=== PATIENT | male | born 1980 | race Caucasian/White ===

== ENCOUNTER 2022-12-13 09:41 | Outpatient (OUT) | payer MEDICARE, SELFPAY ==
--- NOTE | 2022-12-13 | VEIN_ITS ---
Patient: LILLIAN PETERSON Exam Date: 12/13/2022 : 1980 Gender:M Ordering : ASHLEY VÁSQUEZ Admission #: [id number] Family : Order #: [id number] CLICK HERE TO VIEW EXAM RADIOLOGY REPORT PROCEDURE: VC EXT VENOUS REFLUX ALEX LMTD COMPARISON: None. INDICATIONS: Pain due to varicose veins of bilateral legs I83.813 TECHNIQUE: Duplex imaging of the lower extremity to assess the deep and superficial venous system for the presence of deep or superficial venous incompetence and to document the location and severity of disease. The study includes evaluation of the great saphenous vein (GSV), anterior accessory saphenous vein (AASV) and small saphenous vein (SSV). Patient scanned in reverse Trendelenburg and standing. FINDINGS: RIGHT LOWER EXTREMITY: Saphenofemoral Junction Reflux: YesNo 3.7mm sec GSV: Diam (mm) Reflux/ Time (sec) Proximal Thigh 3.3 No Mid Thigh 2.2 No Distal Thigh N/A Prox Calf N/A Mid Calf N/A Saphenopopliteal Junction Reflux: 5.7mm Yes 1.3 SSV: Proximal Calf 6.7 Yes 0.7 Mid Calf 4.3 Yes 2.0 AASV: Not present Proximal Thigh Mid Thigh Distal Thigh Thrombi: No acute or chronic thrombus Compressibility: Normal Flow: Normal Preforator: Prox/med calf 5.7mm with 0.6s reflux. Tech Note: Incompetent SPJ and SSV. Patent varicose vein mid/med calf 4.0mm with 1.4s reflux. LEFT LOWER EXTREMITY: Saphenofemoral Junction Reflux: No 3.9 mm sec GSV: Diam (mm) Reflux/Time (sec) Proximal Thigh 2.7 No Mid Thigh 3.4 Yes 1.0 Distal Thigh 3.1 No Prox Calf 2.5 No Mid Calf 2.0 Saphenopopliteal Junction Relux: 3.6 mm No SSV: Proximal Calf 2.4 No Mid Calf 1.9 No AASV: Not present Proximal Thigh Mid Thigh Distal Thigh Thrombi: No acute or chronic thrombus visualized Compressibility: Normal Flow: Normal Branch Operations Coordinator: No perforators visualized. Tech Note: No patent varicose veins. CONCLUSION: 1. Abnormally dilated and incompetent right small saphenous vein. 2. Abnormally dilated incompetent hat binder vein within proximal right calf. Dictated by: Tobias Pitts M.D. on 12/13/2022 at 10:59 Approved by: Tobias Pitts M.D. on 12/13/2022 at 11:02
--- NOTE | 2022-12-13 | VEIN_ITS ---
Patient: LILLIAN PETERSON Exam Date: 12/13/2022 : 1980 Gender:M Ordering : ASHLEY VÁSQUEZ Admission #: [id number] Family : Order #: [id number] CLICK HERE TO VIEW EXAM RADIOLOGY REPORT PROCEDURE: VC FACILITY EST COMPREHENSIVE VEIN CENTER - OFFICE VISIT INITIAL COMPARISON: None. PROGRESS NOTES: [age] year old male who presents with a 6 year history of right lower extremity aching, burning, heaviness, itching, stinging, dull pain, reoccurring wound. The patient's right leg symptoms are worse than the left. There has been a progression of symptoms over time with development of edema and cellulitis. This increases with prolonged like dependency. The patient describes an improvement with rest, elevation, and compression stockings. The patient denies any signs and symptoms to suggest arterial ischemia. The patient describes a family history : Noncontributory. The patient has drinking and smoking history of : Heavy tobacco smoker; no alcohol consumption. Patient has a past medical history significant for hypertension, bicuspid cardiac valve, spinal surgery. The patient denies a history of deep venous thrombus or pulmonary embolus. See separate history and physical for medication list. No prior treatment for varicose or spider veins. Current use of compression stockings. After review of nurse notes, history and physical exam I discussed at length the pathophysiology of venous hypertension and possible treatments, therapies and strategies available. We discussed at length the importance of elevating the lower extremities above the level of the heart, increased physical activity and compression stocking use. Ultrasound venous reflux study performed today was discussed at length with the patient. The report demonstrates dilated and incompetent right small saphenous vein, right calf hazardous materials analyst vein, and several incompetent branch saphenous varicosities. PHYSICAL EXAM: The right leg demonstrates several calf varicosities, no significant spider veins, areas of scarring and prior infection/wounds, but no current open ulceration, mild edema, scattered areas of skin discoloration. The left leg demonstrates no significant varicosities, no spider veins, no ulceration, no edema, no skin discoloration. Both thighs, legs and feet were symmetrically warm to the touch. Good posterior tibial and dorsalis pedis pulses were present bilaterally. VEIN/[facility] Facility EST Comprehensive IMPRESSION: 1. Right lower extremity venous insufficiency 2. Right lower extremity varicose veins 3. Right lower extremity subcutaneous edema 4. No flow significant arterial disease 5. CEAP: C3, EP, AP, MD PLAN: 1. Continued use of compression stockings 2. Elevated legs and increased physical activity symptomatic relief 3. Endovenous laser ablation of right small saphenous vein, right calf hazardous materials analyst vein, and microfoam chemical ablation of right leg branch saphenous varicosities. Nurse notes, history and physical were reviewed and confirmed, see attached forms. The nurse was present throughout the physical exam and consultation Dictated by: Tobias Pitts M.D. on 12/13/2022 at 11:25 Approved by: Tobias Pitts M.D. on 12/13/2022 at 11:32
== END 2022-12-13 09:42 | disposition home or self-care (01) ==
LOC: VC 09:41
DX: I83.813 Varicose veins of bilateral lower extremities with pain (principal); Z87.2 Personal history of diseases of the skin and subcutaneous tissue; R60.0 Localized edema; I80.00 Phlebitis and thrombophlebitis of superficial vessels of unspecified lower extremity
CPT/HCPCS: 93970; G0463

== ENCOUNTER 2023-01-19 08:23 | Outpatient (OUT) | payer MEDICARE, SELFPAY ==
--- NOTE | 2023-01-19 | VEIN_ITS ---
[address] [address] Patient Name: LILLIAN PETERSON MRN: [id number] date: 1980 Sex: M Assigned Patient Location: Current Patient Location: Accession/Order Number: [id number] Exam Date: 01/19/2023 08:40 Report Date: 01/19/2023 09:55 At the request of: DELVIN ESPINOSA Procedure: VC Endovenous Ablation 1VeinRT EXAMINATION: VC Endovenous Ablation 1VeinRT HISTORY: Pain due to varicose veins of bilateral legs I83.813 The risks and benefits of the procedure had been previously discussed, and were rediscussed at length. Informed written consent was obtained. Jay Isabel RN and Juanpablo Christina RDMS assisted. Time out procedure was performed. The right lower extremity was prepared and draped in the usual sterile fashion to allow knee flexion in the sterile field. Duplex ultrasound probe was draped in a sterile cover, sterile transmission gel was used. Venous mapping was performed with the areas of dilation and large tributaries marked. The total length was 38 cm from the entry 3 cm above lateral malleolus to just above knee joint (thigh extension). The diameter of the small saphenous vein ranged from 6.7 mm. A 30 gauge needle and 1% buffered lidocaine was used to anesthetize the entry site. A 4 mm incision was made with a scalpel and the saphenous vein was entered percutaneously under direct ultrasound guidance with a micropuncture set, a single stick was successful in gaining access. A micro-guide wire was inserted and the needle removed. A micro-set including a dilator was inserted over the microwire and the needle and dilator were removed. A guide wire was inserted through the micro-set and guided through the saphenous vein to the saphenofemoral junction. The dilator was removed and an introducer sheath was inserted over the wire until the end of the sheath entered the saphenofemoral junction. The dilator and wire were removed and the 600 micron fiber was introduced and placed and positioned so that it extended beyond the sheath and was 3 cm distal to the saphenofemoral or saphenopopliteal junction. Final position of the fiber was determined by ultrasound guidance and duplex imaging. Tumescent anesthetic was delivered by ultrasound guidance. 175 cc of fluid was delivered along the entire course of the saphenous vein. The solution consisted of 1000 cc of normal saline with 40 mL of 1% lidocaine and 20 mL of sodium bicarbonate. A final positioning check was made. The energy source was turned on by means of the foot pedal and the fiber and sheath were withdrawn. The total number of Joules delivered was 1871. The laser was active for 234 seconds under continuous pulse, average laser use of 8 J. Laser start time 0942 hours, 01/19/23. Laser stop time 0946 hours, 01/19/23. A duplex ultrasound revealed compressibility and flow at the saphenofemoral junction immediately after the procedure. Hemostasis at the access site was achieved. The skin incision of the saphenous vein was closed with a 4 x 4. A compression stocking was applied. Postop instructions were given. A follow up appointment was recommended and scheduled. The patient tolerated the procedure well. Electronically authenticated by: DEMETRA BRADEN Date: 01/19/2023 09:55
[2023-01-19] MEDS: 0.9 % SODIUM CHLORIDE 500 ML, LIDOCAINE HCL 20 ML, SODIUM BICARBONATE 10 MEQ INJ (08:59)
== END 2023-01-19 08:24 | disposition home or self-care (01) ==
LOC: VC 08:23
PROVIDERS: Visit Provider Radiology Diagnostic Radiology
DX: I83.813 Varicose veins of bilateral lower extremities with pain (principal)
CPT/HCPCS: 36478

== ENCOUNTER 2023-01-26 09:01 | Outpatient (OUT) | payer MEDICARE, SELFPAY ==
--- NOTE | 2023-01-26 09:04 | VEIN_ITS ---
Patient: LILLIAN PETERSON Exam Date: 01/26/2023 : 1980 Gender:M Ordering : DR MIGUEL ANGEL SEBASTIAN M.D. Admission #: [id number] Family : Order #: [id number] CLICK HERE TO VIEW EXAM RADIOLOGY REPORT PROCEDURE: VC EXT VENOUS RT LMTD COMPARISON: None. INDICATIONS: I80.01 phlebitis/thrombophlebitis right leg TECHNIQUE: Lower extremity saldivar scale and Duplex Doppler evaluation of the deep venous system from the inguinal ligament through the calf veins. FINDINGS: REGION: Right lower extremity. THROMBI: Negative for DVT. Heat induced thrombus visualized in SSV starting at mid thigh and extending through distal calf. COMPRESSIBILITY: Non-compressible segments corresponding to thrombus. FLOW: Absent flow corresponding to thrombus. CONCLUSION: Post ablation occlusion of the right small saphenous vein Dictated by: Miguel Angel Sebastian MD on 01/26/2023 at 09:16 Approved by: Miguel Angel Sebastian MD on 01/26/2023 at 09:18
--- NOTE | 2023-01-26 09:04 | VEIN_ITS ---
Patient: LILLIAN PETERSON Exam Date: 01/26/2023 : 1980 Gender:M Ordering : DR MIGUEL ANGEL SEBASTIAN M.D. Admission #: [id number] Family : Order #: [id number] CLICK HERE TO VIEW EXAM RADIOLOGY REPORT PROCEDURE: VC FACILITY EST LMTD VEIN CENTER - OFFICE VISIT FOLLOW UP COMPARISON: None. PROGRESS NOTES: The patient reports no significant problems following intravenous laser ablation of the right small saphenous vein. The patient did not require oral analgesics. The patient has worn his compression stockings. The patient has followed our recommendations to walk 20-30 minutes once or twice per day since the procedure. Physical exam demonstrates no areas of bruising. The thrombosed right small saphenous vein can be palpated. No areas of erythema or warmth to suggest cellulitis or thrombophlebitis. Extensive hemosiderin staining and skin thickening most significant along the medial ankle Review of the ultrasound performed the same day demonstrates occlusive thrombus extending throughout the treated small saphenous vein. No deep vein thrombus.. The patient expressed a desire to proceed with treatment of incompetent right perforating veins related to persistent ulceration. VEIN/[facility] Facility EST LMTD IMPRESSION: 1. Successful ablation of the right small saphenous vein 2. Persistent incompetent right perforating vein. PLAN: Intravenous laser ablation right leg incompetent perforating veins Nurse notes, history and physical were reviewed and confirmed, see attached forms. The nurse was present throughout the physical exam and consultation Dictated by: Miguel Angel Sebastian MD on 01/26/2023 at 11:41 Approved by: Miguel Angel Sebastian MD on 01/26/2023 at 11:44
== END 2023-01-26 09:02 | disposition home or self-care (01) ==
LOC: VC 09:01
PROVIDERS: PCP Radiology Diagnostic Radiology; Visit Provider Radiology Diagnostic Radiology
DX: I80.01 Phlebitis and thrombophlebitis of superficial vessels of right lower extremity (principal)
CPT/HCPCS: 93971; G0463

== ENCOUNTER 2023-02-14 12:46 | Outpatient (OUT) | payer MEDICARE, SELFPAY ==
--- NOTE | 2023-02-14 12:51 | VEIN_ITS ---
[address] [address] Patient Name: LILLIAN PETERSON MRN: [id number] date: 1980 Sex: M Assigned Patient Location: Current Patient Location: Accession/Order Number: [id number] Exam Date: 02/14/2023 13:00 Report Date: 02/14/2023 14:32 At the request of: DELVIN ESPINOSA Procedure: VC Endovenous Perf Ablation RT EXAMINATION: VC Endovenous Perf Ablation RT COMPARISON: INDICATIONS: Pain due to varicose veins of bilateral legs I83.813 OPERATIVE REPORT: Diagnosis: Superficial venous reflux, incompetent perforating veins Procedure: Endovenous laser ablation of the right obiee consultant(s) Procedure: The patient was positioned supine on the table and the leg was prepped and draped to allow for visualization during venous access. A sterile cover was draped over a 16 mhz ultrasound probe. Venous mapping was performed prior to the procedure noting location and size of vessel(s). Federal Judicial Law Clerk vein 1: Medial mid right lower leg. The diameter of the vein ranged from 15 mm's below the muscular fascia to 5 mm's at the entry point. Using a 30 gauge needle the entry site was anesthetized with 1 cc of 1% buffered lidocaine. Access was gained percutaneously, with a 21-gauge needle, into the obiee consultant vein under ultrasound guidance. The needle was advanced into the desired position and the pre-measured 400-micron fiber was then inserted into the needle and locked in place. The position of the fiber was imaged with ultrasound guidance. The fiber tip was visualized to be 15 mm from the deep vessel. An anesthetic solution of 6 cc 1% buffered lidocaine was delivered along the course of the vein under ultrasound guidance using a syringe. A final positioning check of the laser fiber tip was performed. The laser was activated by means of a foot-pedal and the fiber and needle were withdrawn together in accordance to the desired joules per treatment area/spot weld. 4 areas/spot welds were performed, and the total number of joules delivered was 145 . The total time of energy delivery was 18 seconds. A duplex ultrasound revealed compressibility and flow of the deep system immediately after the procedure. Hemostasis of the access site was achieved and dressed. Federal Judicial Law Clerk vein 2: Mid posterior medial right leg. The diameter of the vein ranged from 6 mm's below the muscular fascia to 4 mm's at the entry point. Using a 30 gauge needle the entry site was anesthetized with 1 cc of 1% buffered lidocaine. Access was gained percutaneously, with a 21-gauge needle, into the obiee consultant vein under ultrasound guidance. The needle was advanced into the desired position and the pre-measured 400-micron fiber was then inserted into the needle and locked in place. The position of the fiber was imaged with ultrasound guidance. The fiber tip was visualized to be 20 mm from the deep vessel. An anesthetic solution of 5cc 1% buffered lidocaine was delivered along the course of the vein under ultrasound guidance using a syringe. A final positioning check of the laser fiber tip was performed. The laser was activated by means of a foot-pedal and the fiber and needle were withdrawn together in accordance to the desired joules per treatment area/spot weld. 4 areas/spot welds were performed, and the total number of joules delivered was 135. The total time of energy delivery was 17 seconds. A duplex ultrasound revealed compressibility and flow of the deep system immediately after the procedure. Hemostasis of the access site was achieved and dressed. [employer] Judicial Law Clerk vein 3: Right medial ankle. The diameter of the vein ranged from 8 mm's below the muscular fascia to 4 mm's at the entry point. Using a 30 gauge needle the entry site was anesthetized with 1 cc of 1% buffered lidocaine. Access was gained percutaneously, with a 21-gauge needle, into the obiee consultant vein under ultrasound guidance. The needle was advanced into the desired position and the pre-measured 400-micron fiber was then inserted into the needle and locked in place. The position of the fiber was imaged with ultrasound guidance. The fiber tip was visualized to be 10 mm from the deep vessel. An anesthetic solution of 5cc 1% buffered lidocaine was delivered along the course of the vein under ultrasound guidance using a syringe. A final positioning check of the laser fiber tip was performed. The laser was activated by means of a foot-pedal and the fiber and needle were withdrawn together in accordance to the desired joules per treatment area/spot weld. 4 areas/spot welds were performed, and the total number of joules delivered was 215. The total time of energy delivery was 27 seconds. A duplex ultrasound revealed compressibility and flow of the deep system immediately after the procedure. Hemostasis of the access site was achieved and dressed. A 20-30 mm compression stocking over coban was placed on the treated leg. Post-Op instructions were given, and a follow-up appointment was made. CONCLUSION: 1. Technically successful endovenous laser ablation of 3 right leg pain, obiee consultant veins Electronically authenticated by: DELVIN ESPINOSA Date: 02/14/2023 14:32
[2023-02-14] MEDS: LIDOCAINE HCL 20 ML, SODIUM BICARBONATE 2 MEQ INJ (13:12)
== END 2023-02-14 12:47 | disposition home or self-care (01) ==
LOC: VC 12:46
PROVIDERS: PCP Radiology Diagnostic Radiology; Visit Provider Radiology Diagnostic Radiology
DX: I83.813 Varicose veins of bilateral lower extremities with pain (principal)
CPT/HCPCS: 36478

== ENCOUNTER 2023-02-28 12:52 | Outpatient (OUT) | payer MEDICARE, SELFPAY ==
--- NOTE | 2023-02-28 | VEIN_ITS ---
Patient: LILLIAN PETERSON Exam Date: 02/28/2023 : 1980 Gender:M Ordering : DR MIGUEL ANGEL SEBASTIAN M.D. Admission #: [id number] Family : Order #: [id number] CLICK HERE TO VIEW EXAM RADIOLOGY REPORT PROCEDURE: [facility] EST TD VEIN CENTER - OFFICE VISIT FOLLOW UP COMPARISON: [facility], 01/26/2023. PROGRESS NOTES: The patient reports some mild discomfort of the right leg following intravenous laser ablation of multiple perforating veins. The patient did not require analgesics. He has worn his compression stockings. The patient has followed our recommendations to walk 20-30 minutes once or twice per day since the procedure. Physical exam demonstrates multiple thrombosed varicose veins. Reduction in subcutaneous edema is observed. No areas of erythema or warmth to suggest cellulitis or thrombophlebitis. No active ulceration Review of the ultrasound performed the same day demonstrates occlusive thrombus extending throughout the treated senior market intelligence consultant veins. There is a 2.5 cm segment of deep vein thrombus in a single posterior tibial vein likely representing clot propagation from a treated adjacent senior market intelligence consultant vein. I did not recommend any therapy at this time. The patient expressed a desire to proceed with treatment of incompetent right leg varicose veins with micro foam chemical ablation. [facility] IMPRESSION: 1. Successful ablation of incompetent right leg perforating veins 2. Persistent incompetent right leg varicose veins. PLAN: Micro foam chemical ablation right leg incompetent varicose veins Nurse notes, history and physical were reviewed and confirmed, see attached forms. The nurse was present throughout the physical exam and consultation Dictated by: Miguel Angel Sebastian MD on 02/28/2023 at 14:45 Approved by: Miguel Angel Sebastian MD on 02/28/2023 at 15:06
--- NOTE | 2023-02-28 | VEIN_ITS ---
Patient: LILLIAN PETERSON Exam Date: 02/28/2023 : 1980 Gender:M Ordering : DR MIGUEL ANGEL SEBASTIAN M.D. Admission #: [id number] Family : Order #: [id number] CLICK HERE TO VIEW EXAM RADIOLOGY REPORT PROCEDURE: VC EXT VENOUS RT LMTD COMPARISON: VC EXT VENOUS RT LMTD, 01/26/2023. INDICATIONS: Phlebitis of superficial veins of rt lower extremity I80.01 TECHNIQUE: Lower extremity saldivar scale and Duplex Doppler evaluation of the deep venous system from the inguinal ligament through the calf veins. FINDINGS: REGION: Right lower extremity. THROMBI: Positive for DVT. Positive for DVT at medial ankle PTV, 2.5 cm segment. Heat induced thrombus visualized at medial ankle, dist/med calf, and mid/med calf. COMPRESSIBILITY: Non-compressible segments corresponding to thrombus. FLOW: Absent flow corresponding to thrombus CONCLUSION: Post ablation occlusion of the treated incompetent perforating veins 2.5 cm segment of deep vein thrombus in a posterior tibial vein likely related to progression of clot from a treated perforating vein Dictated by: Miguel Angel Sebastian MD on 02/28/2023 at 13:15 Approved by: Miguel Angel Sebastian MD on 02/28/2023 at 13:16
== END 2023-02-28 12:53 | disposition home or self-care (01) ==
LOC: VC 12:52
PROVIDERS: PCP Radiology Diagnostic Radiology; Visit Provider Radiology Diagnostic Radiology
DX: I80.01 Phlebitis and thrombophlebitis of superficial vessels of right lower extremity (principal)
CPT/HCPCS: 93971; G0463

== ENCOUNTER 2023-03-09 13:01 | Outpatient (OUT) | payer MEDICARE, SELFPAY ==
--- NOTE | 2023-03-09 | VEIN_ITS ---
[address] [address] Patient Name: LILLIAN PETERSON MRN: [id number] date: 1980 Sex: M Assigned Patient Location: Current Patient Location: Accession/Order Number: [id number] Exam Date: 03/09/2023 13:10 Report Date: 03/09/2023 15:10 At the request of: DELVIN ESPINOSA Procedure: VC INJ Foam Sclerosant [employer]US [employer] PROCEDURE: VC INJ Foam Sclerosant [employer] COMPARISON: None. HISTORY: Painful Varicose Veins Pre-operative Diagnosis: CEAP class C3 venous insufficiency with pain, tenderness, edema and incompetent varicose vein(s), chronic venous insufficiency left leg secondary to venous incompetence Post-operative Diagnosis: CEAP class C3 venous insufficiency with pain, tenderness, edema and incompetent varicose vein(s), chronic venous insufficiency left leg secondary to venous incompetence Procedure Performed: 1. Ultrasound-guided microfoam chemical ablation with Varithenaregistered 2. Intraoperative ultrasound guidance Anesthesia: None Indications for Procedure: 42 year old female. Symptoms including pain and swelling for many years despite conservative medical therapy including medical compression stockings, exercise and analgesics. Prior procedures include endovenous laser ablation. Multiple incompetent varicosities of the left leg. Duplex scan showed reflux and enlarged diameters up to 5 mm. The patient underwent informed consent including management options where the complications of infection, bleeding, pain, and skin injury were discussed. Particular attention was spent discussing thrombus extension and deep vein thrombosis as well as the possibility of pulmonary embolus and treatment with oral or injectable blood thinners. Procedure: The patient walked to the procedure room. All applicable staff donned appropriate apparel. A procedure timeout was performed to confirm correct patient, correct extremity, correct procedure, and correct room set-up including presence of all applicable supplies, devices, and drugs. A duplex ultrasound, performed by myself confirmed the location and incompetence of branch saphenous varicosities and their course was marked on the skin together with the dilated tributaries. The extent of treatment of the vein and the associated varicosities was determined through ultrasound mapping. The skin was prepped and then punctured with a butterfly needle and advanced under ultrasound guidance. The Varithenaregistered canister was activated and the canister was primed and purged as required in the instructions for use. Varithenaregistered was drawn into a sterile syringe. 5 cc injected into a 5mm distal right great saphenous vein and associated varicose vein. 5 cc injected into a 5mm distal right lateral thigh varicose vein 5 cc injected into a 5mm distal lateral right lower leg varicose vein Varithenaregistered was slowly administered at 0.5-1.0 cc/second with close observation by ultrasound of its course in the vessels. Total volume utilized was: 15 cc. Following administration of Varithenaregistered the leg was elevated and the patient was asked to repeatedly dorsiflex the ankle to limit flow of Varithenaregistered into perforating veins. Once appropriate spasm had been confirmed in the treated veins, the vascular catheter was removed from the leg and light pressure was applied over the puncture site for hemostasis. The common femoral and deep superficial veins were then evaluated for flow and compressibility prior to dressing placement. The lower extremity was kept elevated at 45 degrees above the horizontal and cording material was applied over the saphenous segments and tributaries to allow for eccentric compression over the target vessels including the targeted saphenous vein(s). A multilayer dressing was applied consisting of foam pads, coban and thigh-high 20-30 mm Hg compression elastic support hose were placed on the patient. The leg was lowered only after compression had been applied and the patient was immediately ambulatory. The patient ambulated 10 minutes under supervision and was without apparent concerns at time of release. Post-care instructions include advising patient to keep post-treatment bandages in place and dry for 48 hours, avoid extended periods of inactivity, avoid heavy exercise for one week, wear compression stockings on the treated leg continuously for two weeks, to walk daily for 10 minutes over the next month. The patient was instructed to take an anti-inflammatory medicine as needed and to follow up for color duplex scan of the Saphenous veins, the treated branch saphenous varicosities, the adjacent deep veins, and additional treatment within 7 days. PERSONNEL: Jay Isabel RN Electronically authenticated by: DELVIN EPSINOSA Date: 03/09/2023 15:10
== END 2023-03-09 13:02 | disposition home or self-care (01) ==
LOC: VC 13:02
PROVIDERS: PCP Radiology Diagnostic Radiology; Visit Provider Radiology Diagnostic Radiology
DX: I83.813 Varicose veins of bilateral lower extremities with pain (principal)
CPT/HCPCS: 36466

== ENCOUNTER 2023-03-13 14:19 | Outpatient (OUT) | payer MEDICARE, SELFPAY ==
--- NOTE | 2023-03-13 14:20 | VEIN_ITS ---
Patient: LILLIAN PETERSON Exam Date: 03/13/2023 : 1980 Gender:M Ordering : DR DELVIN ESPINOSA M.D. Admission #: [id number] Family : Order #: [id number] CLICK HERE TO VIEW EXAM RADIOLOGY REPORT PROCEDURE: VC EXT VENOUS RT LMTD COMPARISON: VC EXT VENOUS RT LMTD, 02/28/2023. INDICATIONS: I80.01 Phlebitis of superficial veins of rt lower extremity TECHNIQUE: Lower extremity saldivar scale and Duplex Doppler evaluation of the deep venous system from the inguinal ligament through the calf veins. FINDINGS: REGION: Right lower extremity. THROMBI: Negative for DVT. Varithena induced thrombus visualized distal GSV, lat/dist thigh, and lat/dist calf. COMPRESSIBILITY: Non-compressible segments. FLOW: Areas of no flow. OTHER: Largest patent varicose vein that remains is at dist/med thigh 2.7mm with 0.7s reflux. CONCLUSION: 1. Successful post ablation occlusion of treated branch saphenous varicosities within the right leg. Dictated by: Tobias Pitts M.D. on 03/13/2023 at 15:01 Approved by: Tobias Pitts M.D. on 03/13/2023 at 15:01
--- NOTE | 2023-03-13 14:20 | VEIN_ITS ---
Patient: LILLIAN PETERSON Exam Date: 03/13/2023 : 1980 Gender:M Ordering : DR DELVIN ESPINOSA M.D. Admission #: [id number] Family : Order #: [id number] CLICK HERE TO VIEW EXAM RADIOLOGY REPORT PROCEDURE: [facility] EST [facility] - OFFICE VISIT FOLLOW UP [facility] PROGRESS NOTES: The patient reports improvement in leg symptoms. There has been interval reduction in varicosities. The patient has followed our recommendations to walk 20-30 minutes once or twice per day since the procedure. Physical exam demonstrates decrease in varicosities of the right leg. Persistent varicosities are identified along the left lung. Review of the ultrasound performed the same day demonstrates occlusive thrombus extending throughout the treated vein(s), see separate report, consistent with a successful ablation. No thrombus extending into or beyond the saphenofemoral junction. The patient expressed a desire to proceed with treatment of left leg incompetent branch saphenous varicosities. The patient was informed that treatment was a process and would require approximately 1 -2 procedures/sessions. VEIN/[facility] EST LMTD IMPRESSION: 1. Successful ablation of the treated right leg branch saphenous vein(s). 2. Persistent left leg varicose veins and lower extremity symptoms. PLAN: 1. Microfoam chemical ablation of left leg incompetent branch saphenous varicosities. 2. Ultrasound evaluation posterior 0 inferior to right ankle lateral malleolus where patient describes new area of discoloration and skin thickening. Nurse notes, history and physical were reviewed and confirmed, see attached forms. The nurse was present throughout the physical exam and consultation Dictated by: Tobias Pitts M.D. on 03/13/2023 at 15:01 Approved by: Tobias Pitts M.D. on 03/13/2023 at 15:03
== END 2023-03-13 14:20 | disposition home or self-care (01) ==
LOC: VC 14:19
PROVIDERS: PCP Radiology Diagnostic Radiology; Visit Provider Radiology Diagnostic Radiology
DX: I80.01 Phlebitis and thrombophlebitis of superficial vessels of right lower extremity (principal)
CPT/HCPCS: 93971; G0463

== ENCOUNTER 2023-03-23 14:29 | Outpatient (OUT) | payer MEDICARE, SELFPAY ==
--- NOTE | 2023-03-23 | VEIN_ITS ---
[address] [address] Patient Name: LILLIAN PETERSON MRN: [id number] date: 1980 Sex: M Assigned Patient Location: Current Patient Location: Accession/Order Number: [id number] Exam Date: 03/23/2023 14:30 Report Date: 03/23/2023 16:01 At the request of: DELVIN ESPINOSA Procedure: VC INJ Foam Sclerosant WUS [employer] PROCEDURE: VC INJ Foam Sclerosant WUS [employer]IPPER COMPARISON: None. HISTORY: Pain due to varicose veins of bilateral legs I83.813 Pre-operative Diagnosis: CEAP class C3 venous insufficiency with pain, tenderness, edema and incompetent right saphenous and varicose vein(s), chronic venous insufficiency right leg secondary to venous incompetence Post-operative Diagnosis: CEAP class C3 venous insufficiency with pain, tenderness, edema and incompetent right saphenous and varicose vein(s), chronic venous insufficiency right leg secondary to venous incompetence Procedure Performed: 1. Ultrasound-guided microfoam chemical ablation with Varithenaregistered 2. Intraoperative ultrasound guidance Anesthesia: None Indications for Procedure: 42-year-old male who presents with a long history of lower extremity pain swelling in varicose veins. The patient failed conservative medical therapy including medical compression stockings, exercise and analgesics. Prior procedures include . Multiple incompetent varicosities of the right leg. Duplex scan showed reflux and enlarged diameters up to 4 mm. The patient underwent informed consent including management options where the complications of infection, bleeding, pain, and skin injury were discussed. Particular attention was spent discussing thrombus extension and deep vein thrombosis as well as the possibility of pulmonary embolus and treatment with oral or injectable blood thinners. Procedure: The patient walked to the procedure room. All applicable staff donned appropriate apparel. A procedure timeout was performed to confirm correct patient, correct extremity, correct procedure, and correct room set-up including presence of all applicable supplies, devices, and drugs. A duplex ultrasound, performed by myself confirmed the location and incompetence of branch saphenous varicosities and their course was marked on the skin together with the dilated tributaries. The extent of treatment of the vein and the associated varicosities was determined through ultrasound mapping. The skin was prepped and then punctured with a butterfly needle and advanced under ultrasound guidance. The Varithenaregistered canister was activated and the canister was primed and purged as required in the instructions for use. Varithenaregistered was drawn into a sterile syringe. The following injections were made: 5 cc central 4 mm varicose vein distal medial lower leg 3 cc and to 4 mm varicose vein right distal lateral ankle 3 cc into a 4 mm varicose vein anterior mid lower leg Varithenaregistered was slowly administered at 0.5-1.0 cc/second with close observation by ultrasound of its course in the vessels. Total volume utilized was: 15 cc. Following administration of Varithenaregistered the leg was elevated and the patient was asked to repeatedly dorsiflex the ankle to limit flow of Varithenaregistered into perforating veins. Once appropriate spasm had been confirmed in the treated veins, the vascular catheter was removed from the leg and light pressure was applied over the puncture site for hemostasis. The common femoral and deep superficial veins were then evaluated for flow and compressibility prior to dressing placement. The lower extremity was kept elevated at 45 degrees above the horizontal and cording material was applied over the saphenous segments and tributaries to allow for eccentric compression over the target vessels including the targeted saphenous vein(s). A multilayer dressing was applied consisting of foam pads, coban and thigh-high 20-30 mm Hg compression elastic support hose were placed on the patient. The leg was lowered only after compression had been applied and the patient was immediately ambulatory. The patient ambulated 10 minutes under supervision and was without apparent concerns at time of release. Post-care instructions include advising patient to keep post-treatment bandages in place and dry for 48 hours, avoid extended periods of inactivity, avoid heavy exercise for one week, wear compression stockings on the treated leg continuously for two weeks, to walk daily for 10 minutes over the next month. The patient was instructed to take an anti-inflammatory medicine as needed and to follow up for color duplex scan of the Saphenous veins, the treated branch saphenous varicosities, the adjacent deep veins, and additional treatment within 7 days. PERSONNEL: Jay Isabel RN Electronically authenticated by: DELVIN ESPINOSA Date: 03/23/2023 16:01
== END 2023-03-23 14:30 | disposition home or self-care (01) ==
LOC: VC 14:29
PROVIDERS: PCP Radiology Diagnostic Radiology; Visit Provider Radiology Diagnostic Radiology
DX: I83.813 Varicose veins of bilateral lower extremities with pain (principal)
CPT/HCPCS: 36466

== ENCOUNTER 2023-03-30 14:36 | Outpatient (OUT) | payer MEDICARE, SELFPAY ==
--- NOTE | 2023-03-30 14:39 | VEIN_ITS ---
Patient Name: LILLIAN PETERSON MR#: [id number] : 1980 Exam Date: 03/30/2023 Ordering Doctor: DR DELVIN ESPINOSA M.D. RADIOLOGY REPORT PROCEDURE: [facility] EST [facility] C[facility] - OFFICE VISIT FOLLOW UP [facility] PROGRESS NOTES: The patient reports improvement in leg symptoms. There has been interval reduction in varicosities. The patient has followed our recommendations to walk 20-30 minutes once or twice per day since the procedure. Physical exam demonstrates decrease in varicosities of the leg. No residual varicosities are identified along the legs bilaterally. Review of the ultrasound performed the same day demonstrates occlusive thrombus extending throughout the treated vein(s), see separate report, consistent with a successful ablation. No thrombus extending into or beyond the saphenofemoral junction. VEIN/[facility] EST LMTD IMPRESSION: 1. Successful ablation of the remaining treated branch saphenous vein(s). 2. No remaining treatable varicosities at this time. PLAN: Follow-up in the future as needed. Nurse notes, history and physical were reviewed and confirmed, see attached forms. The nurse was present throughout the physical exam and consultation Dictated by: Tobias Pitts M.D. on 03/30/2023 at 15:24 Approved by: Tobias Pitts M.D. on 03/30/2023 at 15:25
--- NOTE | 2023-03-30 14:39 | VEIN_ITS ---
Patient Name: LILLIAN PETERSON MR#: [id number] : 1980 Exam Date: 03/30/2023 Ordering Doctor: DR DELVIN ESPINOSA M.D. RADIOLOGY REPORT PROCEDURE: VC EXT VENOUS RT LMTD COMPARISON: VC EXT VENOUS RT LMTD, 03/13/2023. INDICATIONS: I80.01 Phlebitis of superficial veins of rt lower extremity TECHNIQUE: Lower extremity saldivar scale and Duplex Doppler evaluation of the deep venous system from the inguinal ligament through the calf veins. FINDINGS: REGION: Right lower extremity. THROMBI: Negative for DVT. Varithena induced thrombus visualized at lateral ankle, mid/lateral calf, and distal/med calf. COMPRESSIBILITY: Non-compressible segments corresponding to thrombus FLOW: Areas of no flow. OTHER: CONCLUSION: 1. Successful post ablation occlusion of treated right leg branch saphenous varicosities. Dictated by: Tobias Pitts M.D. on 03/30/2023 at 15:24 Approved by: Tobias Pitts M.D. on 03/30/2023 at 15:24
== END 2023-03-30 14:37 | disposition home or self-care (01) ==
LOC: VC 14:36
PROVIDERS: PCP Radiology Diagnostic Radiology; Visit Provider Radiology Diagnostic Radiology
DX: I80.01 Phlebitis and thrombophlebitis of superficial vessels of right lower extremity (principal)
CPT/HCPCS: 93971; G0463